=== PATIENT | female | born 1950 | race Caucasian/White ===

== ENCOUNTER 2021-01-11 16:19 | Emergency (ER) | payer MEDICARE, OTHER ==
[~2021-01-11 16:19] MED LIST: CARDIZEM60 MG PO; COMBIVENT RESPIM4 GM INH; DIAZEPAM 5MG TAB5 MG PO; GABAPENTIN800 MG PO; HYDROCODONE-APA1 TAB PO; MELOXICAM15 MG PO; OMEPRAZOLE40 MG PO; VENTOLIN (2.5 MG/3 M INH
[2021-01-11 18:31] LABS: BASOPHIL 0.8 % (0-2); EOSINOPHIL 3.8 % (0-7); HCT 38.7 % (37.0-47.0); HGB 12.4 g/dl (12.5-16.0); LYMPHOCYTE 19.7 % (15-48); MCH 33.2 pg (25.0-31.0); MCV 103.8 fL (78.0-100.0); MONOCYTE 9.2 % (0-12); MPV 9.2 fL (6.0-9.5); NEUTROPHIL 66.1 % (41-80); NRBC 0; PLT 327 K/uL (150-400); RBC 3.73 M/uL (4.20-5.40); RDW 13.1 % (11.5-14.0); WBC 11.8 K/uL (4.0-10.5)
[2021-01-11 18:41] LABS: ALBUMIN 3.6 g/dL (3.4-5.0); BILIRUBIN - TOTAL 0.3 mg/dL (0.2-1.0); BUN/CREAT RATIO (CALC) 21.6 RATIO; CREATININE 0.74 mg/dL (0.51-0.95); GLOBULIN (CALCULATION) 4.1 g/dL; POTASSIUM 4.3 mmol/L (3.5-5.1); TOTAL PROTEIN 7.7 g/dL (6.4-8.2)
[2021-01-11 18:46] LABS: PRO-BNP 225 pg/mL (<125)
[2021-01-11 19:52] LABS: BILIRUBIN NEGATIVE (NEGATIVE); BLOOD NEGATIVE Ery/uL (NEGATIVE); CLARITY CLEAR (CLEAR); COLOR YELLOW (YELLOW); GLUCOSE (U) NORMAL (NORMAL); LEUKOCYTES NEGATIVE Leu/uL (NEGATIVE); NITRITE NEGATIVE (NEGATIVE); PROTEIN NEGATIVE (NEGATIVE); SPECIFIC GRAVITY 1.015 (1.001-1.030); UROBILINOGEN 0.2 mg/dL (0.2-1.0)
[2021-01-11 19:58] LABS: URINARY WBC RARE
[2021-01-11] MEDS ORDERED: ZITHROMAX250 MG PO (20:41)
[2021-01-11] MEDS ORDERED: LIDOCAINE 5% P1 EACH TOP (20:41)
== END 2021-01-11 21:04 | disposition home or self-care (01) ==
LOC: FER 16:19
PROVIDERS: Physician Assistant
DX: J44.0 Chronic obstructive pulmonary disease with (acute) lower respiratory infection (principal); J18.9 Pneumonia, unspecified organism; J44.1 Chronic obstructive pulmonary disease with (acute) exacerbation; R60.0 Localized edema; I48.91 Unspecified atrial fibrillation; K21.9 Gastro-esophageal reflux disease without esophagitis; Z88.1 Allergy status to other antibiotic agents; Z88.2 Allergy status to sulfonamides; Z79.899 Other long term (current) drug therapy; Z79.82 Long term (current) use of aspirin
CPT/HCPCS: 36415; 71101; 80053; 81001; 83880; 84484; 85025; 93005

== ENCOUNTER 2021-02-11 14:48 | Inpatient (IN) | payer MEDICARE, OTHER ==
[~2021-02-11] VITALS: Ht 162.6 cm; Wt 77.6 kg
[~2021-02-11 14:48] MED LIST changes: +LIDOCAINE 5% P1 EACH TOP; +ZITHROMAX250 MG PO
[2021-02-11 18:03] LABS: BASOPHIL 0.2 % (0-2); EOSINOPHIL 0.1 % (0-7); HCT 40.7 % (37.0-47.0); HGB 13.1 g/dl (12.5-16.0); MCH 33.2 pg (25.0-31.0); MCHC 32.2 g/dL (32.0-36.0); MONOCYTE 10.6 % (0-12); MPV 9.8 fL (6.0-9.5); NEUTROPHIL 78.6 % (41-80); NRBC 0; PLT 303 K/uL (150-400); RBC 3.95 M/uL (4.20-5.40); RDW 12.3 % (11.5-14.0); WBC 22.3 K/uL (4.0-10.5)
[2021-02-11 18:08] LABS: INR 1.12 (0.9-1.2); PROTHROMBIN TIME 13.8 SECONDS (11.8-13.4); PTT 33.2 SECONDS (24.4-34.7)
[2021-02-11 18:12] LABS: IRON % SATURATION 7.4 %SAT (20-50)
[2021-02-11 18:14] LABS: ALBUMIN 3.4 g/dL (3.4-5.0); BILIRUBIN - TOTAL 0.7 mg/dL (0.2-1.0); BUN/CREAT RATIO (CALC) 28.7 RATIO; CREATININE 1.22 mg/dL (0.51-0.95); GLOBULIN (CALCULATION) 4.5 g/dL; MAGNESIUM 2.8 mg/dL (1.8-2.4); POTASSIUM 5.1 mmol/L (3.5-5.1); TOTAL PROTEIN 7.9 g/dL (6.4-8.2)
[2021-02-11 18:18] LABS: PRO-BNP 223 pg/mL (<125)
[2021-02-11 18:29] LABS: LACTIC ACID 1.7 mmol/L (0.4-1.9)
[2021-02-12] MEDS ORDERED: LASIX20 MG PO (02:21)
[2021-02-12] MEDS ORDERED: POTASSIUM CHLO10 MEQ PO (02:22)
[2021-02-12] MEDS ORDERED: HYDROCODON-ACE1 EAC2 PO (02:30)
[2021-02-12] MEDS ORDERED: LISINOPRIL10 MG PO (02:32)
[2021-02-12] MEDS ORDERED: HUMIRA PEN PSO1 EACH SC (02:34)
[2021-02-12 04:13] LABS: BASOPHIL 0.3 % (0-2); HCT 33.3 % (37.0-47.0); HGB 10.6 g/dl (12.5-16.0); LYMPHOCYTE 13.4 % (15-48); MCH 33.1 pg (25.0-31.0); MCHC 31.8 g/dL (32.0-36.0); MCV 104.1 fL (78.0-100.0); MONOCYTE 9.7 % (0-12); MPV 9.6 fL (6.0-9.5); NEUTROPHIL 75.3 % (41-80); NRBC 0; PLT 201 K/uL (150-400); RDW 12.3 % (11.5-14.0); WBC 15.6 K/uL (4.0-10.5)
[2021-02-12 04:30] LABS: BUN/CREAT RATIO (CALC) 34.1 RATIO; CREATININE 0.91 mg/dL (0.51-0.95); POTASSIUM 4.5 mmol/L (3.5-5.1)
[2021-02-12 07:33] LABS: BILIRUBIN NEGATIVE (NEGATIVE); BLOOD NEGATIVE Ery/uL (NEGATIVE); CLARITY CLEAR (CLEAR); COLOR YELLOW (YELLOW); GLUCOSE (U) NORMAL (NORMAL); LEUKOCYTES TRACE Leu/uL (NEGATIVE); NITRITE NEGATIVE (NEGATIVE); PROTEIN NEGATIVE (NEGATIVE); UROBILINOGEN 0.2 mg/dL (0.2-1.0)
[2021-02-12 08:01] LABS: BACTERIA TRACE; URINARY WBC RARE
[2021-02-13 06:20] LABS: BASOPHIL 0.5 % (0-2); HCT 32.8 % (37.0-47.0); HGB 10.5 g/dl (12.5-16.0); LYMPHOCYTE 12.7 % (15-48); MCH 33.1 pg (25.0-31.0); MCV 103.5 fL (78.0-100.0); MONOCYTE 9.8 % (0-12); MPV 9.6 fL (6.0-9.5); NEUTROPHIL 72.6 % (41-80); NRBC 0; PLT 198 K/uL (150-400); RBC 3.17 M/uL (4.20-5.40); RDW 11.9 % (11.5-14.0)
[2021-02-13 06:35] LABS: ALBUMIN 2.4 g/dL (3.4-5.0); BILIRUBIN - TOTAL 0.4 mg/dL (0.2-1.0); BUN/CREAT RATIO (CALC) 18.2 RATIO; C-REACTIVE PROTEIN 17.7 mg/dL (<=0.90); CREATININE 0.77 mg/dL (0.51-0.95); POTASSIUM 4.4 mmol/L (3.5-5.1)
[2021-02-13 06:50] LABS: GLOBULIN (CALCULATION) 3.5 g/dL; TOTAL PROTEIN 5.9 g/dL (6.4-8.2)
[2021-02-14 06:09] LABS: BASOPHIL 0.6 % (0-2); EOSINOPHIL 6.2 % (0-7); HCT 35.2 % (37.0-47.0); HGB 11.3 g/dl (12.5-16.0); LYMPHOCYTE 18.7 % (15-48); MCHC 32.1 g/dL (32.0-36.0); MCV 102.9 fL (78.0-100.0); MONOCYTE 10.5 % (0-12); MPV 9.1 fL (6.0-9.5); NEUTROPHIL 63.5 % (41-80); NRBC 0; PLT 233 K/uL (150-400); RBC 3.42 M/uL (4.20-5.40); RDW 11.9 % (11.5-14.0); WBC 10.2 K/uL (4.0-10.5)
[2021-02-14 06:28] LABS: BUN/CREAT RATIO (CALC) 9.9 RATIO; CREATININE 0.71 mg/dL (0.51-0.95)
--- NOTE | 2021-02-14 16:49 | NUR ---
SPOKE WITH PT REGARDING HOME HEALTH SERVICES. PT. DECLINED HH, STATING THAT HE IS HOME WITH HER AND HER DAUGHTER AND SON WILL ALSO BE HELPING THEM IF THEY HAVE NEEDS. PT. HAS A ROLLING WALKER AND SHOWER SEAT.
[2021-02-15 07:06] LABS: BASOPHIL 0.5 % (0-2); EOSINOPHIL 4.2 % (0-7); HCT 33.7 % (37.0-47.0); HGB 10.7 g/dl (12.5-16.0); LYMPHOCYTE 18.1 % (15-48); MCH 32.8 pg (25.0-31.0); MCHC 31.8 g/dL (32.0-36.0); MCV 103.4 fL (78.0-100.0); MONOCYTE 12.1 % (0-12); NEUTROPHIL 64.6 % (41-80); NRBC 0; PLT 234 K/uL (150-400); RBC 3.26 M/uL (4.20-5.40); RDW 11.9 % (11.5-14.0); WBC 9.9 K/uL (4.0-10.5)
[2021-02-15 07:26] LABS: BUN/CREAT RATIO (CALC) 13.2 RATIO; CREATININE 0.76 mg/dL (0.51-0.95)
[2021-02-16 05:57] LABS: BASOPHIL 0.6 % (0-2); EOSINOPHIL 4.9 % (0-7); HCT 37.4 % (37.0-47.0); LYMPHOCYTE 21.6 % (15-48); MCH 33.2 pg (25.0-31.0); MCHC 32.1 g/dL (32.0-36.0); MCV 103.6 fL (78.0-100.0); MONOCYTE 12.8 % (0-12); MPV 8.9 fL (6.0-9.5); NEUTROPHIL 59.3 % (41-80); NRBC 0; PLT 253 K/uL (150-400); RBC 3.61 M/uL (4.20-5.40); RDW 11.9 % (11.5-14.0); WBC 10.1 K/uL (4.0-10.5)
[2021-02-16 06:54] LABS: BUN/CREAT RATIO (CALC) 8.8 RATIO; CREATININE 0.68 mg/dL (0.51-0.95); POTASSIUM 3.8 mmol/L (3.5-5.1)
[2021-02-16] MEDS ORDERED: FOLIC ACID1 MG PO (15:05)
[2021-02-16] MEDS ORDERED: LEVAQUIN500 MG PO (15:05)
[2021-02-16] MEDS ORDERED: MIRALAX 238GM238 GM PO (15:05)
[2021-02-16] MEDS ORDERED: METRONIDAZOLE500 MG PO (15:05)
[2021-02-16] MEDS ORDERED: ZOFRAN4 M1 PO (15:05)
== END 2021-02-16 15:50 | disposition home or self-care (01) | DRG 386 ==
LOC: FER 14:48 → FMS 22:06 → UNDODEPER 02-12 00:33 → FMS 02-12 07:39
PROVIDERS: Allergy & Immunology Allergy; Emergency Medicine; Family Medicine; Nurse Practitioner; ADMIT Internal Medicine
DX: K51.50 Left sided colitis without complications (principal); N17.9 Acute kidney failure, unspecified; A09 Infectious gastroenteritis and colitis, unspecified; M48.54XA Collapsed vertebra, not elsewhere classified, thoracic region, initial encounter for fracture; K56.7 Ileus, unspecified; Z20.822 Contact with and (suspected) exposure to COVID-19; K59.03 Drug induced constipation; T40.2X5A Adverse effect of other opioids, initial encounter; D53.9 Nutritional anemia, unspecified; I10 Essential (primary) hypertension; G89.29 Other chronic pain; E86.0 Dehydration; M19.90 Unspecified osteoarthritis, unspecified site; J45.909 Unspecified asthma, uncomplicated; K21.9 Gastro-esophageal reflux disease without esophagitis; L40.9 Psoriasis, unspecified; R33.9 Retention of urine, unspecified; Z90.710 Acquired absence of both cervix and uterus; Z90.49 Acquired absence of other specified parts of digestive tract; Z88.2 Allergy status to sulfonamides; Z88.1 Allergy status to other antibiotic agents; Z91.040 Latex allergy status; Z79.899 Other long term (current) drug therapy; Z82.3 Family history of stroke; Z82.49 Family history of ischemic heart disease and other diseases of the circulatory system; Z80.9 Family history of malignant neoplasm, unspecified
CPT/HCPCS: 36415; 71250; 72131; 74018; 80048; 80053; 81001; 82607; 83540; 83550; 83605; 83615; 83690; 83735; 83880; 84145; 84484; 85025; 85610; 85730; 86140; 93005; 97161; 97166; 97530-GP; 97535; J1170; J1956; J2405; J7030; J7120; U0002

== ENCOUNTER 2021-04-20 13:43 | Emergency (ER) | payer MEDICARE, OTHER ==
[~2021-04-20 13:43] MED LIST changes: +FOLIC ACID1 MG PO; +HUMIRA PEN PSO1 EACH SC; +HYDROCODON-ACE1 EAC2 PO; +LASIX20 MG PO; +LEVAQUIN500 MG PO; +LISINOPRIL10 MG PO; +METRONIDAZOLE500 MG PO; +MIRALAX 238GM238 GM PO; +POTASSIUM CHLO10 MEQ PO; +ZOFRAN4 M1 PO
[2021-04-20 15:00] LABS: BASOPHIL 0.6 % (0-2); EOSINOPHIL 0.6 % (0-7); HCT 42.7 % (37.0-47.0); HGB 14.2 g/dl (12.5-16.0); LYMPHOCYTE 21.8 % (15-48); MCHC 33.3 g/dL (32.0-36.0); MCV 99.3 fL (78.0-100.0); MONOCYTE 10.1 % (0-12); NEUTROPHIL 66.5 % (41-80); NRBC 0; PLT 282 K/uL (150-400); WBC 10.1 K/uL (4.0-10.5)
[2021-04-20 15:18] LABS: ALBUMIN 3.2 g/dL (3.4-5.0); BILIRUBIN - TOTAL 0.6 mg/dL (0.2-1.0); BUN/CREAT RATIO (CALC) 13.1 RATIO; CREATININE 0.61 mg/dL (0.51-0.95); GLOBULIN (CALCULATION) 4.3 g/dL; POTASSIUM 3.6 mmol/L (3.5-5.1); TOTAL PROTEIN 7.5 g/dL (6.4-8.2)
[2021-04-20] MEDS ORDERED: ONDANSETRON ODT4 MG PO (17:59)
[2021-04-20 19:11] LABS: BILIRUBIN 1+ mg/dL (NEGATIVE); BLOOD NEGATIVE Ery/uL (NEGATIVE); CLARITY CLEAR (CLEAR); COLOR YELLOW (YELLOW); GLUCOSE (U) NORMAL (NORMAL); LEUKOCYTES NEGATIVE Leu/uL (NEGATIVE); NITRITE NEGATIVE (NEGATIVE); PROTEIN NEGATIVE (NEGATIVE); SPECIFIC GRAVITY 1.015 (1.001-1.030); UROBILINOGEN 0.2 mg/dL (0.2-1.0); pH 5.5 (5.0-9.0)
[2021-04-20 19:26] LABS: URINARY WBC RARE
== END 2021-04-20 18:27 | disposition home or self-care (01) ==
LOC: FER 13:43
PROVIDERS: Physician Assistant
DX: R11.2 Nausea with vomiting, unspecified (principal); R19.7 Diarrhea, unspecified; I10 Essential (primary) hypertension; J45.909 Unspecified asthma, uncomplicated; Z79.82 Long term (current) use of aspirin; Z79.51 Long term (current) use of inhaled steroids; Z79.899 Other long term (current) drug therapy
CPT/HCPCS: 36415; 80053; 81001; 85025; J2405; J7030; Q9967

== ENCOUNTER 2021-06-03 11:57 | Emergency (ER) | payer MEDICARE, OTHER ==
[~2021-06-03 11:57] MED LIST changes: +ONDANSETRON ODT4 MG PO
[2021-06-03 13:23] LABS: BASOPHIL 0.1 % (0-2); EOSINOPHIL 1.6 % (0-7); HCT 43.7 % (37.0-47.0); HGB 14.7 g/dl (12.5-16.0); MCH 32.4 pg (25.0-31.0); MCHC 33.6 g/dL (32.0-36.0); MCV 96.3 fL (78.0-100.0); MONOCYTE 11.7 % (0-12); MPV 9.6 fL (6.0-9.5); NEUTROPHIL 71.3 % (41-80); NRBC 0; PLT 212 K/uL (150-400); RBC 4.54 M/uL (4.20-5.40); RDW 12.5 % (11.5-14.0); WBC 8.6 K/uL (4.0-10.5)
[2021-06-03 13:51] LABS: ALBUMIN 3.5 g/dL (3.4-5.0); BILIRUBIN - TOTAL 0.7 mg/dL (0.2-1.0); BUN/CREAT RATIO (CALC) 16.7 RATIO; CREATININE 0.54 mg/dL (0.51-0.95); GLOBULIN (CALCULATION) 4.6 g/dL; POTASSIUM 2.9 mmol/L (3.5-5.1); TOTAL PROTEIN 8.1 g/dL (6.4-8.2)
[2021-06-03 15:49] LABS: INFLUENZA A NAA NEGATIVE (NEGATIVE)
[2021-06-03 15:53] LABS: CORONAVIRUS 2019 SARS-COV-2 POSITIVE (NEGATIVE)
[2021-06-03 17:02] LABS: BILIRUBIN 1+ mg/dL (NEGATIVE); BLOOD NEGATIVE Ery/uL (NEGATIVE); CLARITY CLEAR (CLEAR); COLOR YELLOW (YELLOW); GLUCOSE (U) NORMAL (NORMAL); LEUKOCYTES NEGATIVE Leu/uL (NEGATIVE); NITRITE NEGATIVE (NEGATIVE); PROTEIN TRACE (LOW) mg/dL (NEGATIVE); UROBILINOGEN 0.2 mg/dL (0.2-1.0); pH 6.5 (5.0-9.0)
[2021-06-03 17:06] LABS: BACTERIA 1+; SQUAMOUS EPITHELIAL CELLS RARE
[2021-06-03] MEDS ORDERED: ZOFRAN4 M1 PO (17:42)
[2021-06-03] MEDS ORDERED: K-TAB ER20 MEQ PO (17:42)
== END 2021-06-03 21:17 | disposition home or self-care (01) ==
LOC: FER 11:57
PROVIDERS: Nurse Practitioner Family
DX: U07.1 COVID-19 (principal); E86.0 Dehydration; E87.6 Hypokalemia; I10 Essential (primary) hypertension; J44.9 Chronic obstructive pulmonary disease, unspecified; Z88.1 Allergy status to other antibiotic agents; Z88.2 Allergy status to sulfonamides; Z23 Encounter for immunization
CPT/HCPCS: 36415; 80053; 81001; 82150; 83690; 85025; J2405; J7030; M0243; Q0244; Q9967; U0002